=== PATIENT | female | born 1955 | race Caucasian/White ===

== ENCOUNTER 2025-02-01 07:05 | Day surgery (SDC) | payer MEDICARE, BC ==
[~2025-02-01] VITALS: Ht 157.5 cm; Wt 50.0 kg
[~2025-02-01 07:05] MED LIST: TRET20CR34 TOP
[2025-02-01 07:31] VITALS: BP 123/76; PULSE 72; RESP 12; TEMP 97.7
[2025-02-01] MEDS ORDERED: ondansetron/PF 4mg/2ml inj ONE (13:19)
[2025-02-01] MEDS ORDERED: fentaNYL/PF 50MCG/1 ML 2ML syringe ONE (14:16)
[2025-02-01] MEDS ORDERED: MIDAZolam 1 MG/ML 5ML VIAL ONE (14:17)
[2025-02-01 15:05] VITALS: BP 112/77; PULSE 65; RESP 13; O2SAT 98
[2025-02-01 15:15] VITALS: BP 112/62; PULSE 60; RESP 11; O2SAT 96
[2025-02-01 15:25] VITALS: BP 114/56; PULSE 59; RESP 11; O2SAT 96
[2025-02-01 15:35] VITALS: BP 114/62; PULSE 66; RESP 14; O2SAT 97
== END 2025-02-01 15:56 | disposition home or self-care (01) ==
LOC: GI LAB 07:05
PROVIDERS: ATTEND Internal Medicine Gastroenterology
DX: R93.3 Abnormal findings on diagnostic imaging of other parts of digestive tract (principal); K57.30 Diverticulosis of large intestine without perforation or abscess without bleeding; K63.89 Other specified diseases of intestine; Z80.0 Family history of malignant neoplasm of digestive organs
CPT/HCPCS: 45378; 99153; A4620; G0500; J2250; J2405; J3010; J7030; Z7512; 99152